=== PATIENT | female | born 1955 | race Caucasian/White ===

== ENCOUNTER → 2021-03-30 | Outpatient (CLI) | payer OTHER ==
[~2021-03-30] MED LIST: SOTROVIMAB 500 MG in IV DEXTROSE 5% 50 ML IV ONE
[2021-03-30 13:34] VITALS: BP 104/65
[2021-03-30 14:23] VITALS: BP 117/72
[2021-03-30 14:38] VITALS: BP 118/78
[2021-03-30 15:50] VITALS: BP 114/71
== END | disposition home or self-care (01) ==
LOC: OPS 11:11
PROVIDERS: ATTEND Internal Medicine Pulmonary Disease
DX: U07.1 COVID-19 (principal)
CPT/HCPCS: J7060; M0247; Q0247; 96365